=== PATIENT | male | born 1995 | race African-American/Black ===

== ENCOUNTER 2019-09-08 12:05 | Emergency (ER) | payer OTHER ==
[~2019-09-08] VITALS: Ht 182.9 cm; Wt 83.9 kg
--- NOTE | 2019-09-08 12:19 | PHYS DOC ---
Past History Past Medical History: No Pertinent History Past Surgical History: No Surgical History Adult General Chief Complaint Chief Complaint: BACK INJURY HPI HPI Patient presents to the emergency department for evaluation. He states he was playing football on , and tackled but since that time has had pain in his lower thoracic spine and upper lumbar spine. He has not had any numbness, weakness, incontinence, saddle anesthesia, or difficulty urinating or ambulate, but palpation of the midline lower thoracic and upper lumbar spine is tender. Movement and palpation worsen his pain. There are no alleviating factors to his symptoms. He denies any other painful areas or complaints at this time. Review of Systems Review of Systems Constitutional: Denies fever or chills [] Respiratory: Denies cough or shortness of breath [] Cardiovascular: The patient denies any shortness of breath, chest pain, palpit ations, or orthopnea [] GI: Denies abdominal pain, nausea, vomiting, bloody stools or diarrhea [] : Denies dysuria or hematuria [] Musculoskeletal: Denies back pain or joint pain [] Integument: Denies rash or skin lesions [] Neurologic: Denies headache, focal weakness or sensory changes [] Allergies Allergies Allergies Coded Allergies Type Severity Reaction Last Updated Verified No Known Drug Allergies 09/08/19 No Physical Exam Physical Exam PHYSICAL EXAM: CONSTITUTIONAL: Well developed, well nourished HEAD: normocephalic, atraumatic EENT: PERRL, EOMI. Conjunctivae normal color, sclerae non-icteric; moist mucous membranes. NECK: Supple, non-tender; no meningismus. LUNGS: Lungs CTA, breathing even and unlabored. Normal air movement. HEART: Regular rate and rhythm, no murmur CHEST: No deformity; non-tender ABDOMEN: The abdomen is soft, and non-tender, no masses or bruits. EXTREM: Normal ROM; no deformity, no calf tenderness. Normal pulses palpable in all extremities. There is no pedal edema. SKIN: No rash; no diaphoresis. NEURO: Alert; normal speech and cognition; CN's grossly intact; strength grossly intact without focal deficit. Distal sensation is normal. Gait is normal. There is no foot drop. There is no perineal anesthesia. BACK: No CVA TTP. There is tenderness to palpation in the upper lumbar spine, and the lower thoracic spine in the midline. There is no step-off. The remainder the cervical, thoracic, and lumbar spine is nontender. EKG EKG [] Radiology/Procedures Radiology/Procedures PROCEDURE: LUMBAR SPINE 2-3V 3 views thoracic spine and 3 views lumbar spine dated 09/08/2019. No comparison available. Clinical data indication: Pain. FINDINGS: 3 views of thoracic spine show normal sagittal alignment. Vertebral body heights are maintained. No paraspinous soft tissue abnormality. No apparent fracture. 3 views lumbar spine show normal bony alignment. Vertebral body heights are maintained. Posterior elements are intact. Mild hypertrophic change of the lower lumbar apophyseal joints. IMPRESSION: No acute radiographic abnormality. [] Course & Med Decision Making Course & Med Decision Making Pertinent Imaging studies reviewed. (See chart for details) []12:45 PM: The patient's condition remains stable. I discussed test results, the need for close outpatient follow-up, avoiding contact sports until reassessment and cleared by physician, and return precautions in detail. Dragon Disclaimer Dragon Disclaimer This electronic medical record was generated, in whole or in part, using a voice recognition dictation system. Departure Departure: Impression: Primary Impression: Back pain Disposition: 01 HOME, SELF-CARE Condition: STABLE Patient Instructions: Back Pain, Adult, Musculoskeletal Pain Additional Instructions: Ibuprofen 400-600 mg every 6 hours may help improve your symptoms. Applying a heating pad to the affected area may help improve your symptoms. The prescribed medications may cause drowsiness-use caution while taking. Scripts Cyclobenzaprine Hcl (CYCLOBENZAPRINE HCL) 10 Mg Tablet 1 TAB PO TID PRN for Back Pain, #20 TAB Prov: KING ARERAGA MD 09/08/19 KING ARREAGA MD Sep 08, 2019 12:19
--- NOTE | 2019-09-08 12:39 | RAD ---
3 views thoracic spine and 3 views lumbar spine dated 09/08/2019. No comparison available. Clinical data indication: Pain. FINDINGS: 3 views of thoracic spine show normal sagittal alignment. Vertebral body heights are maintained. No paraspinous soft tissue abnormality. No apparent fracture. 3 views lumbar spine show normal bony alignment. Vertebral body heights are maintained. Posterior elements are intact. Mild hypertrophic change of the lower lumbar apophyseal joints. IMPRESSION: No acute radiographic abnormality. Electronically signed by: Bladimir De La Cruz MD (09/08/2019 12:36 PM) [id number]
[2019-09-08] MEDS ORDERED: CYCL-331 PO (12:51)
[2019-09-08 13:05] VITALS: BP 107/59
== END 2019-09-08 13:07 | disposition home or self-care (01) ==
LOC: ER 12:12
DX: M54.6 Pain in thoracic spine (principal); M54.5 Low back pain; G89.11 Acute pain due to trauma; W03.XXXA Other fall on same level due to collision with another person, initial encounter; Y93.61 Activity, american tackle football; Y92.89 Other specified places as the place of occurrence of the external cause; Y99.8 Other external cause status
CPT/HCPCS: 72072; 72100; 99284

== ENCOUNTER 2019-12-18 15:19 | Emergency (ER) | payer OTHER ==
[~2019-12-18] VITALS: Ht 182.9 cm; Wt 86.2 kg
[~2019-12-18 15:19] MED LIST: CYCL-331 PO
--- NOTE | 2019-12-18 15:46 | PHYS DOC ---
Past History Past Medical History: No Pertinent History Past Surgical History: No Surgical History Alcohol Use: None Drug Use: None Adult General Chief Complaint Chief Complaint: FLU SYMPTOM HPI HPI Patient is a 24-year-old male who presents with complaint of 2 weeks of cough and congestion with reported intermittent fevers without documented temperature. States he is coughing up yellow sputum. He traveled from [place] the [facility] recently 2 weeks ago. He runs track and field. No chest pain or shortness of breath. Review of Systems Review of Systems All other systems were reviewed and found to be within normal limits, except as documented in this note. Allergies Allergies Allergies Coded Allergies Type Severity Reaction Last Updated Verified No Known Drug Allergies 09/08/19 No Physical Exam Physical Exam Constitutional: Well developed, well nourished, no acute distress, non-toxic appearance. [] HENT: Normocephalic, atraumatic, bilateral external ears normal, oropharynx moist, no oral exudates, nose normal. [] Eyes: PERRLA, EOMI, conjunctiva normal, no discharge. [] Neck: Normal range of motion, no tenderness, supple, no stridor. [] Cardiovascular:Heart rate regular rhythm, no murmur [] Lungs & Thorax: Bilateral breath sounds clear to auscultation [] Abdomen: Bowel sounds normal, soft, no tenderness, no masses, no pulsatile masses. [] Skin: Warm, dry, no erythema, no rash. [] Back: No tenderness, no CVA tenderness. [] Extremities: No tenderness, no cyanosis, no clubbing, ROM intact, no edema. [] Neurologic: Alert and oriented X 3, normal motor function, normal sensory function, no focal deficits noted. [] Psychologic: Affect normal, judgement normal, mood normal. [] EKG EKG [] Radiology/Procedures Radiology/Procedures CHEST PA LATERAL History: Cough Comparison: Thoracic spine 3 View X ray exam 09/08/2019. Findings: Frontal and lateral views of the chest were obtained. The cardiomediastinal silhouette is normal. Pulmonary vasculature is normal. The lungs are clear. No pleural effusion or pneumothorax is seen. There is no acute bone abnormality. IMPRESSION: No acute cardiopulmonary process. [] Course & Med Decision Making Course & Med Decision Making Pertinent Labs and Imaging studies reviewed. (See chart for details) Patient seen for cough and congestion x2 weeks. Will check for influenza and get obtain chest x-ray. Patient is not at high risk for coronavirus so will not test. Dragon Disclaimer Dragon Disclaimer This electronic medical record was generated, in whole or in part, using a voice recognition dictation system. Departure Departure: Impression: Primary Impression: Acute viral bronchitis Disposition: 01 HOME, SELF-CARE Condition: STABLE Referrals: PCP,UNKNOWN (PCP) Patient Instructions: Acute Bronchitis Scripts Azithromycin (ZITHROMAX) 250 Mg Tablet 1 PKG PO UD for Bronchitis, #6 TAB Prov: SUPRIYA TORRES DO 12/18/19 Prednisone (PREDNISONE) 50 Mg Tablet 50 MG PO DAILY for Bronchitis for 5 Days, #5 TAB Prov: SUPRIYA TORRES DO 12/18/19 SUPRIYA TORRES DO Dec 18, 2019 15:46
[2019-12-18 15:47] VITALS: BP 139/85
--- NOTE | 2019-12-18 16:12 | RAD ---
CHEST PA LATERAL History: Cough Comparison: Thoracic spine 3 View X ray exam 09/08/2019. Findings: Frontal and lateral views of the chest were obtained. The cardiomediastinal silhouette is normal. Pulmonary vasculature is normal. The lungs are clear. No pleural effusion or pneumothorax is seen. There is no acute bone abnormality. IMPRESSION: No acute cardiopulmonary process. Electronically signed by: Joel Olsen MD (12/18/2019 4:09 PM) [id number]
[2019-12-18 16:29] LABS: INFLUENZA A PATIENT NEGATIVE (NEGATIVE); INFLUENZA B PATIENT NEGATIVE (NEGATIVE)
[2019-12-18] MEDS ORDERED: PRED50TA PO (16:36)
[2019-12-18] MEDS ORDERED: AZIT250T PO (16:36)
== END 2019-12-18 16:43 | disposition home or self-care (01) ==
LOC: ER 15:19
DX: J20.8 Acute bronchitis due to other specified organisms (principal)
CPT/HCPCS: 71046; 87804; 99284